=== PATIENT | male | born 1970 | race Caucasian/White ===

== ENCOUNTER 2022-08-27 01:00 | Emergency (ER) | payer BC ==
[~2022-08-27] VITALS: Ht 180.3 cm; Wt 113.4 kg
--- NOTE | 2022-08-27 01:26 | NUR ---
BIBS.R LATERAL ANKLE PAIN S/P EVERSION ON SUNDAY
[2022-08-27] MEDS ORDERED: IBUPROFEN 600 MG TABLET PO ONE (01:30)
[2022-08-27] MEDS ORDERED: IBUPROFEN 600 MG TABLET ONE (01:30)
--- NOTE | 2022-08-27 01:36 | NUR ---
X-RAY AT BEDSIDE
[2022-08-27 02:28] VITALS: BP 132/82; TEMP 98.2
== END 2022-08-27 02:30 | disposition home or self-care (01) ==
LOC: ER 01:22
DX: S93.401A Sprain of unspecified ligament of right ankle, initial encounter (principal); I10 Essential (primary) hypertension; Z60.2 Problems related to living alone; W18.30XA Fall on same level, unspecified, initial encounter; Y93.89 Activity, other specified; Y92.89 Other specified places as the place of occurrence of the external cause; Y99.8 Other external cause status
CPT/HCPCS: 73610-TC